=== PATIENT | male | born 1960 | race Two or more races ===

== ENCOUNTER 2017-06-03 16:15 | Emergency (ER) | payer MEDICAID, OTHER ==
[~2017-06-03] VITALS: Ht 167.6 cm; Wt 115.9 kg
[2017-06-03] MEDS ORDERED: LIDOCAINE 1%, 20ML INFIL ONE (16:30)
[2017-06-03] MEDS ORDERED: DIPH,PERTUSS(ACELL),TET VAC/PF 0.5 ML IM-VACC ONE ×2 (16:30→18:10)
[2017-06-03] MEDS ORDERED: LIDOCAINE 1%, 20ML ONE (16:50)
[2017-06-03] MEDS ORDERED: IBUPROFEN 200 MG TABLET PO ONE (19:30)
[2017-06-03] MEDS ORDERED: IBUPROFEN 200 MG TABLET ONE (19:35)
[2017-06-03 20:06] VITALS: BP 139/87
== END 2017-06-03 20:08 | disposition home or self-care (01) ==
LOC: ED 18:50
DX: S61.216A Laceration without foreign body of right little finger without damage to nail, initial encounter (principal); S61.214A Laceration without foreign body of right ring finger without damage to nail, initial encounter; W26.0XXA Contact with knife, initial encounter; Y93.89 Activity, other specified; Y92.89 Other specified places as the place of occurrence of the external cause; Y99.8 Other external cause status
CPT/HCPCS: 12042; 90471; 90715

== ENCOUNTER 2017-06-07 13:04 | Emergency (ER) | payer OTHER ==
[~2017-06-07] VITALS: Ht 168.9 cm; Wt 116.0 kg
[2017-06-07 13:06] VITALS: BP 131/83
[2017-06-07] MEDS ORDERED: BACITRACIN ZINC OINT 500U/GM, 0.9 GM ONE (13:37)
== END 2017-06-07 14:55 | disposition home or self-care (01) ==
LOC: ED 14:45
DX: S61.216D Laceration without foreign body of right little finger without damage to nail, subsequent encounter (principal)
CPT/HCPCS: 99283

== ENCOUNTER 2017-07-12 12:57 | Emergency (ER) | payer OTHER ==
[~2017-07-12] VITALS: Ht 168.9 cm; Wt 115.5 kg
[2017-07-12 12:59] VITALS: BP 145/88
== END 2017-07-12 14:23 | disposition home or self-care (01) ==
LOC: ED 14:18
DX: G89.11 Acute pain due to trauma (principal); M79.601 Pain in right arm; I10 Essential (primary) hypertension; X58.XXXA Exposure to other specified factors, initial encounter; Y93.89 Activity, other specified; Y92.89 Other specified places as the place of occurrence of the external cause; Y99.9 Unspecified external cause status
CPT/HCPCS: 99281